=== PATIENT | female | born 1995 | race Caucasian/White ===

== ENCOUNTER → 2016-11-22 | Outpatient (CLI) | payer OTHER ==
[~2016-11-22] MED LIST: ARIP2TAB3 PO; BENZ1CAP90 PO; DOXY100T35 PO; ESCI10TA17 PO; LEVOIUD INT UTER; SULF800T23 PO
--- NOTE | 2016-11-22 12:21 | DIAGNOSTIC IMAGING REPORT ---
CHEST 2 VIEWS ROUTINE CLINICAL HISTORY: J01.90 Acute [id number] cough. Sinusitis. COMPARISON STUDY: 09/08/2015 FINDINGS: The bones soft tissues and hemidiaphragms are normal. The cardiomediastinal silhouette is normal. The lungs are clear. The pulmonary vasculature is normal. IMPRESSION: Negative chest. Electronically signed by: Jimmie Madera M.D. 11/22/2016 12:20 PM Dictated Date/Time: 11/22/2016 12:20 PM
--- NOTE | 2016-11-22 12:25 | DIAGNOSTIC IMAGING REPORT ---
SINUS CT CT DOSE: 542.71 mGy.cm HISTORY: Acute sinusitis. TECHNIQUE: Multiaxial CT images of the paranasal sinuses were performed and reformatted in the coronal plane without the use of contrast. COMPARISON: None. FINDINGS: There is a hypoplastic right frontal sinus in comparison to the left. There is mild mucosal thickening within the frontal sinuses with partial opacification of the right frontoethmoidal recess. There are few partially opacified right anterior ethmoid air cells and mild mucosal thickening within the left anterior ethmoid air cells. A 1.2 cm retention cyst within the right sphenoid sinus. Minimal mucosal thickening within the maxillary sinuses. No fluid levels within the paranasal sinuses. The mastoid air cells are clear. Minimal right nasal septal deviation. The left ostiomeatal unit is patent. Partial opacification of the right ethmoid infundibulum. The orbital floors and lamina papyracea are intact. The orbits and visualized brain parenchyma are unremarkable. IMPRESSION: Mild chronic paranasal sinusitis as described above. No fluid levels identified to suggest acute sinusitis. Electronically signed by: Ashish Naqvi M.D. 11/22/2016 12:23 PM Dictated Date/Time: 11/22/2016 12:18 PM
[2016-11-22 13:06] LABS: BASO % 0.2 %; BASO ABS # 0.02 K/uL (0-0.2); COMPLETE YES; EOS % 0.6 %; LYMPH % 19.4 %; LYMPH ABS # 1.96 K/uL (1.2-3.4); MEAN CELL VOLUME 90.1 fL (80-100); MEAN CORPUSCULAR HEMOGLOBIN 31.2 pg (25-34); MEAN CORPUSCULAR HGB CONC 34.7 g/dl (32-36); MEAN PLATELET VOLUME 9.3 fL (7.4-10.4); MONO % 12.7 %; NEUT % 66.1 %; PLATELET COUNT 235 K/uL (130-400); RED BLOOD COUNT 4.77 M/uL (4.2-5.4); WHITE BLOOD COUNT 10.08 K/uL (4.8-10.8)
[2016-11-24 11:44] LABS: QUANTIF TB AG-NIL 0.01 IU/ML; QUANTIFERON NIL 0.05 IU/ML
== END | disposition home or self-care (01) ==
LOC: C.CTS 11:29
PROVIDERS: ATTEND Physician Assistant
DX: J01.90 Acute sinusitis, unspecified (principal)